=== PATIENT | female | born 1980 | race Caucasian/White ===

== ENCOUNTER 2022-12-31 02:29 | Emergency (ER) | payer OTHER ==
[~2022-12-31] VITALS: Ht 162.6 cm; Wt 70.0 kg
[2022-12-31] MEDS ORDERED: KETOROLAC 60MG/2ML VIAL IM NR (04:12)
[2022-12-31] MEDS ORDERED: AMOXICILLIN/POTASSIUM CLAVULANATE 875/125MG TAB PO NR (04:15)
[2022-12-31] MEDS ORDERED: AMOX1TAB16 PO (04:16)
[2022-12-31] MEDS ORDERED: CLIN-194 MT (04:16)
[2022-12-31 04:41] VITALS: BP 154/73
== END 2022-12-31 04:40 | disposition home or self-care (01) ==
LOC: ER 02:52
DX: K04.7 Periapical abscess without sinus (principal); Z88.5 Allergy status to narcotic agent
CPT/HCPCS: 96372; 99283; J1885; Z7610